=== PATIENT | female | born 1995 | race Caucasian/White ===

== ENCOUNTER 2020-01-19 13:14 | Emergency (ER) | payer OTHER, SELFPAY ==
[2020-01-19 13:15] VITALS: BP 126/69; PULSE 76; RESP 16; TEMP 36.4; O2SAT 96; BMI 32.1
--- NOTE | 2020-01-19 13:17 | ED_ITS ---
HPI - General Adult General: Chief complaint: General Medical Stated complaint: HYPOGLYCEMIA Time Seen by Provider: 01/19/20 13:17 Source: patient Mode of arrival: ambulatory Limitations: no limitations History of Present Illness: HPI narrative: Patient comes in today for complaints of low blood sugar. Patient states this morning she woke up and checked her blood sugar and it was 69. Patient ate breakfast which consisted of pretzels and peanut butter. Patient took her routine dose of Lantus. Patient then laid down for nap after feeling slightly nauseous. Patient awakened shortly thereafter with difficulty with movement and called for EMS. Patient's blood sugar was 42 when EMS arrived. Patient was given 1 tube of glucose gel, and 250 mL's of D10 and a cup of ice cream. Patient at this time is alert and responding appropriately. Patient's blood sugar was 150 on arrival to the ER. Patient denies any pain or other symptoms. Review of Systems General: Reports: 10 or more systems reviewed and unremarkable except in HPI and below Endo: Reports: other (Hypoglycemia) REPLACED BY [facility] ED PFSH: Social History Smoking and tobacco status: former smoker Physical Exam Const: COMMON NORMALS: no acute distress and patient oriented x3 GENERAL APPEARANCE: cooperative HENMT: COMMON NORMALS: normocephalic and Normal external nose present HEAD & SCALP: normal to inspection and normocephalic NOSE: Normal external nose present MOUTH: Normal oral and palatal mucosa present Eye: GENERAL EYE: appearance normal, both eyes and all related structures Neck/C-Spine: COMMON NORMALS: full ROM Lymph: LYMPHATIC: no lymphadenopathy noted Chest: COMMONS NORMALS: normal inspection of the chest Resp: COMMON NORMALS: normal respiratory effort EFFORT & INSPECTION: Yes able to speak in complete sentences Cardio: COMMON NORMALS: regular rate and regular rhythm RATE: regular rate RHYTHM: regular rhythm GI: COMMON NORMALS: non-tender : COMMON NORMALS: Yes no CVA tenderness BLADDER/KIDNEY EXAM: Yes no CVA tenderness Back/Pelvis: COMMON NORMALS: no CVA tenderness and thoracic and lumbar spine normal to inspection Extremity: COMMON NORMALS: normal to inspection Neuro: COMMON NORMALS: patient oriented x3 and moves all extremities Psych: COMMON NORMALS: mental status grossly normal and cooperative Skin: COMMON NORMALS: no rashes or lesions noted GENERAL SKIN EXAM: no rashes or lesions noted Course ED course: 1440, patient is alert. Patient appears well. Blood glucose is 263 now. Ultrasound showed a viable of 10 weeks with a heart rate of 136. Vital Signs: Vital signs: Vital Signs Temperature 97.6 F 01/19/20 13:15 Pulse Rate 76 01/19/20 13:15 Respiratory Rate 16 01/19/20 13:15 Blood Pressure 126/69 01/19/20 13:15 Pulse Oximetry 96 01/19/20 13:15 MDM - General Adult MDM Narrative: Medical decision making narrative: Patient comes in today for an episode of hypoglycemia. Patient has recovered since arriving to the ER. Patient had been given insulin glucose in the ambulance and was given 250 mL's of D5 10. Exam notes normal abdomen respirations even lungs clear to auscultation. Ultrasound of the pelvis noted a intrauterine of 10 weeks 5 days with heart rate of 136. Laboratory values noted mild leukocytosis, normal urinalysis, blood glucose of 53. Blood was drawn when EMS had started IV prior to giving D10. Rechecks of blood sugar noted a glucose of 150 on arrival to the ER and 236 about 1-1/2 hours after arrival to the ER. Reviewed exam with patient with recommendations for monitoring blood glucose more closely. Recommended glucose pod testing and instant glucose gel for episodes of hypoglycemia. Tried to reassure her that this often can happen in and there is nothing that is actually wrong except the body requiring more glucose to sustain the and herself. Patient reported understanding and agreed with plan with need for follow-up with primary care and endocrinology. Lab Data: Labs: Lab Results 01/19/20 01/19/20 01/19/20 Range/Units 13:02 13:02 13:20 WBC 16.5 H (4.0-10.0) 10^3/ uL RBC 4.88 (4.1-5.3) 10^6/u L Hgb 14.5 (11.5-15.3) g/dL Hct 43.1 (37.0-47.0) % MCV 88.3 (81-99) fL MCH 29.7 (28.0-34.0) pg MCHC 33.6 (30.0-36.0) g/dL RDW 11.7 L (12.1-15.1) % Plt Count 305 (130-400) 10^3/c mm MPV 10.7 H (7.4-10.4) fL Neut % (Auto) 84.4 % Lymph % (Auto) 10.2 % Elbert % (Auto) 4.1 % Eos % (Auto) 0.1 % Baso % (Auto) 0.2 % Neut # (Auto) 14.0 H (1.8-7.7) 10^3/u L Lymph # (Auto) 1.7 (0.8-4.8) 10^3/u L Elbert # (Auto) 0.7 (0.2-0.9) 10^3/u L Eos # (Auto) 0.0 (0.0-0.8) 10^3/u L Baso # (Auto) 0.0 (0.0-0.1) 10^3/u L Nucleated RBC % (a uto) 0 % Nucleated RBCs # 0.0 /100WBC Sodium 138 (136-145) mmol/L Potassium 3.4 L (3.5-5.1) mmol/L Chloride 102 (98-107) mmol/L Carbon Dioxide 23 (22-29) mmol/L Anion Gap 16.4 (5-19) BUN 13 (6-20) mg/dL Creatinine 0.4 L (0.5-0.9) mg/dL GFR Calculation 196.1 H (90-130) mL/min Glucose 53 L (65-115) mg/dL POC Glucose 150 (70-110) mg/dL Calculated Osmolal ity 280 L (285-295) mOsm/k g Calcium 8.4 L (8.5-10.5) mg/dL Total Bilirubin 0.2 (0.15-1.2) mg/dL AST 17 (0-32) U/L ALT 10 (0-33) U/L Alkaline Phosphata se 46 (35-105) IU/L Total Protein 7.1 (6.6-8.7) g/dL Albumin 4.6 (3.5-5.2) g/dL Globulin 2.5 (1.3-4.6) g/dL Urine Color (Yellow) Urine Appearance (CLEAR) Urine pH (5-7) Ur Specific Gravit y (1.005-1.030) Urine Protein (Negative) Urine Glucose (UA) (Normal) Urine Ketones (Negative) Urine Blood (Negative) Urine Nitrate (Negative) Urine Bilirubin (NEGATIVE) Urine Urobilinogen (Negative) mg/dL Ur Leukocyte Jenna ase (Negative) 01/19/20 01/19/20 Range/Units 14:07 14:35 WBC (4.0-10.0) 10^3/ uL RBC (4.1-5.3) 10^6/u L Hgb (11.5-15.3) g/dL Hct (37.0-47.0) % MCV (81-99) fL MCH (28.0-34.0) pg MCHC (30.0-36.0) g/dL RDW (12.1-15.1) % Plt Count (130-400) 10^3/c mm MPV (7.4-10.4) fL Neut % (Auto) % Lymph % (Auto) % Elbert % (Auto) % Eos % (Auto) % Baso % (Auto) % Neut # (Auto) (1.8-7.7) 10^3/u L Lymph # (Auto) (0.8-4.8) 10^3/u L Elbert # (Auto) (0.2-0.9) 10^3/u L Eos # (Auto) (0.0-0.8) 10^3/u L Baso # (Auto) (0.0-0.1) 10^3/u L Nucleated RBC % (a uto) % Nucleated RBCs # /100WBC Sodium (136-145) mmol/L Potassium (3.5-5.1) mmol/L Chloride (98-107) mmol/L Carbon Dioxide (22-29) mmol/L Anion Gap (5-19) BUN (6-20) mg/dL Creatinine (0.5-0.9) mg/dL GFR Calculation (90-130) mL/min Glucose (65-115) mg/dL POC Glucose 263 (70-110) mg/dL Calculated Osmolal ity (285-295) mOsm/k g Calcium (8.5-10.5) mg/dL Total Bilirubin (0.15-1.2) mg/dL AST (0-32) U/L ALT (0-33) U/L Alkaline Phosphata se (35-105) IU/L Total Protein (6.6-8.7) g/dL Albumin (3.5-5.2) g/dL Globulin (1.3-4.6) g/dL Urine Color Yellow (Yellow) Urine Appearance Clear (CLEAR) Urine pH 6 (5-7) Ur Specific Gravit y 1.020 (1.005-1.030) Urine Protein Trace (Negative) Urine Glucose (UA) 4+ H (Normal) Urine Ketones 1+ H (Negative) Urine Blood Neg (Negative) Urine Nitrate Negative (Negative) Urine Bilirubin Neg (NEGATIVE) Urine Urobilinogen Norm (Negative) mg/dL Ur Leukocyte Jenna ase Negative (Negative) Discharge Plan Discharge Patient Disposition: Home, Self-Care Clinical Impression: Hypoglycemia due to type 1 diabetes mellitus, Diabetes mellitus affecting in first trimester Condition: Stable Prescriptions: No Action Humalog KwikPen Insulin 100 unit/mL insulin pen See Rx Instructions .ROUTE .COMPLEX RF: 0 Lantus Solostar U-100 Insulin 100 unit/mL (3 mL) insulin pen 38 unit SUBCUT DAILY RF: 0 28 mg iron- 800 mcg Tablet 1 tab PO DAILY RF: 0 Discharge Diet: Usual diet Discharge Activity: Increase activity as tolerated Patient Instructions: Diabetic Hypoglycemia (ED) Activity Restrictions/Additional Instructions: Healthy diet. Ensure to check insulin and sugar regularly. Have on hand glucose gel to assist with low blood sugar. Discussed with taker off drying kiln and SUPPLY CHAIN DESIGN MANAGER regarding coordination of care for diabetes and . Eat frequent routine meals. Return to the ER for new concerns. Coding Level of Care Code ED Industrial Training Specialist for Lena Fwd Exam Comprehensive
[2020-01-19 13:25] LABS: Glucose Point of Care 150 mg/dL (70-110)
--- NOTE | 2020-01-19 13:26 | USR_ITS ---
PROCEDURE INFORMATION: Exam: US First Trimester, Transabdominal and US , Transvaginal Exam date and time: 01/19/2020 1:53 PM Age: 24 years old Clinical indication: Screening exam; Other: Hypoglycemic event (assess ); ; Patient HX: H/o c-sec TECHNIQUE: Imaging protocol: Real-time transabdominal obstetrical ultrasound of the maternal pelvis and a first trimester , less than 14 weeks 0 days, with image documentation. Transvaginal imaging was used for better evaluation of the fetus and adnexa. COMPARISON: No relevant prior studies available. FINDINGS: Gestation: There is a single viable intrauterine gestation. Heart rate: The heart rate is 136 bpm. Placenta: No subchorionic bleed. Amniotic fluid: Amniotic fluid is normal for gestational age. BIOMETRY: Estimated gestational age: The estimated gestational age is 10 weeks 5 days. Estimated due date: Estimated date of delivery is August 11, 2020. MATERNAL: Uterus: The uterus measures 11.9 cm x 6.4 cm x 7.5 cm in size. Cervix: Unremarkable as visualized. Right adnexa: The right ovary measures 4.6 cm x 5.3 cm x 2.6 cm in size. There is a 3.4 cm right ovarian cyst. Blood flow is detected in the right ovary on color flow Doppler ultrasound and pulse-wave Doppler spectral analysis. Left adnexa: The left ovary was sought but not visualized. Intraperitoneal space: No intraperitoneal free fluid. US/US OB <= 14 weeks fetus [id number] IMPRESSION: Single viable 10 week 5 day intrauterine gestation.
[2020-01-19 13:40] LABS: Basophils % 0.2 %; Eosinophils % 0.1 %; Hematocrit 43.1 % (37.0-47.0); Hemoglobin 14.5 g/dL (11.5-15.3); Lymphocytes # 1.7 10^3/uL (0.8-4.8); Lymphocytes % 10.2 %; Mean Corpuscular HGB Conc 33.6 g/dL (30.0-36.0); Mean Corpuscular Hemoglobin 29.7 pg (28.0-34.0); Mean Corpuscular Volume 88.3 fL (81-99); Mean Platelet Volume 10.7 fL (7.4-10.4); Monocytes # 0.7 10^3/uL (0.2-0.9); Monocytes % 4.1 %; Neutrophils % 84.4 %; Nucleated Red Blood Cells % 0 %; Platelet Count 305 10^3/cmm (130-400); Red Blood Count 4.88 10^6/uL (4.1-5.3); Red Cell Distribution Width 11.7 % (12.1-15.1); White Blood Count 16.5 10^3/uL (4.0-10.0)
[2020-01-19 13:55] LABS: Alanine Aminotransferase 10 U/L (0-33); Albumin Level 4.6 g/dL (3.5-5.2); Alkaline Phosphatase 46 IU/L (35-105); Anion Gap 16.4 (5-19); Aspartate Amino Transferase 17 U/L (0-32); Blood Urea Nitrogen 13 mg/dL (6-20); Calcium 8.4 mg/dL (8.5-10.5); Carbon Dioxide 23 mmol/L (22-29); Chloride 102 mmol/L (98-107); Globulin 2.5 g/dL (1.3-4.6); Glomerular Filtration Rate 196.1 mL/min (90-130); Glucose 53 mg/dL (65-115); Osmolality Calculated 280 mOsm/kg (285-295); Potassium 3.4 mmol/L (3.5-5.1); Sodium 138 mmol/L (136-145); Total Bilirubin 0.2 mg/dL (0.15-1.2); Total Protein 7.1 g/dL (6.6-8.7)
[2020-01-19 14:39] LABS: Glucose Point of Care 263 mg/dL (70-110)
[2020-01-19 14:50] LABS: Urine Appearance Clear (CLEAR); Urine Color Yellow (Yellow)
[2020-01-19 14:51] LABS: Add Urine Microscopic? YES; Bilirubin Urine Neg (NEGATIVE); Blood Urine Neg (Negative); Glucose Urine UA 4+ (Normal); Ketones Urine 1+ (Negative); Leukocyte Esterase Urine Negative (Negative); Nitrate Urine Negative (Negative); Protein Urine Trace (Negative); Urobilinogen Urine Norm (Negative); pH Urine 6 (5-7)
[2020-01-19 15:34] VITALS: BP 125/71; PULSE 61; RESP 20; O2SAT 96
[2020-01-19 15:36] LABS: Squamous Epithelial Cell Urine 25-40 (0-5); WBC Urine RARE /hpf (0-5)
[2020-01-19 15:37] LABS: Add Urine Culture? No; Bacteria Urine 2+; Mucus Urine 1+
== END 2020-01-19 15:35 | disposition home or self-care (01) ==
PROVIDERS: Emergency Provider Nurse Practitioner Family
DX: O24.011 Pre-existing type 1 diabetes mellitus, in pregnancy, first trimester (principal); E10.9 Type 1 diabetes mellitus without complications; Z3A.10 10 weeks gestation of pregnancy; Z79.4 Long term (current) use of insulin; Z87.891 Personal history of nicotine dependence
CPT/HCPCS: 12345; 36416; 76801; 80053; 81001; 82962; 85025; 99281; 99283

== ENCOUNTER 2020-12-01 08:09 | Emergency (ER) | payer OTHER, SELFPAY ==
[2020-12-01 08:19] VITALS: BP 119/81; PULSE 63; RESP 18; TEMP 36.7; O2SAT 98; BMI 34.0
--- NOTE | 2020-12-01 08:30 | ED_ITS ---
HPI - Nausea/Vomiting/Diarrhea General: Chief complaint: Nausea/Vomiting/Diarrhea Stated complaint: N/V, FEVER, DIABETIC PT Time Seen by Provider: 12/01/20 08:11 History of Present Illness: HPI Narrative: Patient is a 25-year-old female comes to the ED with UTI symptoms, fever and nausea vomiting. patient says about a week and a half ago she started having symptoms of UTI such as burning when urinating. She took some [id number] Azo and it did improve her symptoms. Patient that she started developing a fever nausea and vomiting approximately 3 to 4 days ago. She went to [facility] on November 28 and they diagnosed patient with a UTI and possibly developing pyelonephritis and gave patient a antibiotic shot and sent her home on nausea meds. Patient says she still is having some dysuria, but her nausea has improved with the meds. Patient does endorse having a fever last night that responded to Motrin. Patient currently has a 5-month-old baby and is breast-feeding. Here in the ED she says she does not have any nausea and says she took her antinausea med before coming to ED. Past medical history of type 1 diabetes. Patient denies any abdominal pain, flank pain or bowel symptoms. Patient says she gave herself 10 units of insulin while here in the ED. Associated nausea: Yes Associated symtoms: Reports dysuria and nausea; Denies change in vision, chest pain, fatigue, headache(s) or palpitations Review of Systems Const: Reports: fever(s); Denies: chills or fatigue Eyes: Denies: change in vision or eye discomfort ENMT: Denies: throat pain, odynophagia, nasal discharge or nasal congestion Card: Denies: chest pain, palpitations, edema, swelling of feet/ankles, dyspnea on exertion or orthopnea Resp: Denies: dyspnea, productive cough or non-productive cough GI: Reports: nausea and vomiting; Denies: abdominal pain, diarrhea, constipation or hematochezia : Reports: dysuria; Denies: flank pain or hematuria Musc: Denies: neck pain, back pain or extremity swelling Skin/Breast: Denies: rash or new lesions Neuro: Denies: headache(s), numbness in extremities or weakness in extremities PFS ED PFSH: Social History Smoking and tobacco status: former smoker Female Reproductive History: Date of last menstrual period: 10/06/20 Physical Exam Narrative: EXAM NARRATIVE: Patient is a healthy 25-year-old female that appears in no acute distress or pain when I entered the room. She sitting comfortably on exam bed and showing no signs of distress. Const: COMMON NORMALS: no acute distress, patient oriented x3, healthy appearing and alert GENERAL APPEARANCE: cooperative and comfortable HENMT: COMMON NORMALS: normocephalic HEAD & SCALP: normocephalic MOUTH: Normal oral and palatal mucosa present THROAT: posterior oropharynx normal and uvula midline Neck/C-Spine: COMMON NORMALS: supple GENERAL: Yes normal visual inspection Resp: COMMON NORMALS: normal respiratory effort, No retractions, No use of accessory muscles and clear to auscultation bilaterally EFFORT & INSPECTION: Yes able to speak in complete sentences, No tachypneic, No respiratory distress and No labored AUSCULTATION: clear to auscultation bilaterally Cardio: COMMON NORMALS: regular rate, regular rhythm, S1 normal heart sound present, S2 normal heart sound present, No gallops present (Cardio), No clicks present (Cardio), No murmurs present (Cardio) and Peripheral pulses 2+ throughout RATE: regular rate RHYTHM: regular rhythm HEART SOUNDS: S1 normal heart sound present and S2 normal heart sound present PERIPHERAL PULSES: Peripheral pulses 2+ throughout GI: COMMON NORMALS: Normal to inspection, nondistended, normoactive bowel sounds present, Soft to palpation, non-tender and no masses PALPATION: Yes Soft to palpation : COMMON NORMALS: Yes no CVA tenderness BLADDER/KIDNEY EXAM: Yes no CVA tenderness Back/Pelvis: COMMON NORMALS: no CVA tenderness Extremity: COMMON NORMALS: normal to inspection Neuro: COMMON NORMALS: patient oriented x3 and moves all extremities SENSORIUM/ORIENTATION: Yes alert Skin: GENERAL SKIN EXAM: dry skin Course Vital Signs: Vital signs: Vital Signs Temperature 98.1 F 12/01/20 08:19 Pulse Rate 63 12/01/20 08:19 Respiratory Rate 18 12/01/20 08:19 Blood Pressure 119/81 12/01/20 08:19 Pulse Oximetry 98 12/01/20 08:19 MDM - Nausea/Vomiting/Diarrhea MDM Narrative: Medical decision making narrative: Patient is a 25-year-old female who comes to the ED for UTI and elevated blood sugars. Past medical history of type 1 diabetes. Patient had UTI symptoms for over a week and then was seen at [facility] on November 29 and given a shot of an antibiotic to treat her UTI. Patient was still having some UTI symptoms and had a fever and nausea. Patient is a 25-year-old female appears nontoxic and in no acute distress. Exam findings were unremarkable. CBC and CMP were unremarkable besides the blood glucose of 354. Patient had positive serum ketones and hCG negative. UA seems to be improving although she still having some symptoms of a UTI. Patient took 10 units of her home insulin here in the ED and her blood sugars started decreasing. She was given 1 L of IV fluids. [id number] testing foot patient's monitor glucose at 250 after the fluids and the 10 units of insulin given. Patient was diagnosed with hyperglycemia and UTI. She was discharged home with prescription for Bactrim. She was told to follow-up with the PCP in 5 to 7 days for reevaluation. Return to ED precautions given. Patient understood and agreed with. Lab Data: Attestation: I reviewed the patient's lab results. Labs: Lab Results 12/01/20 12/01/20 12/01/20 Range/Units 08:50 08:50 08:50 WBC 7.8 (4.0-10.0) 10^3/ uL RBC 4.18 (4.1-5.3) 10^6/u L Hgb 12.0 (11.5-15.3) g/dL Hct 37.0 (37.0-47.0) % MCV 88.5 (81-99) fL MCH 28.7 (28.0-34.0) pg MCHC 32.4 (30.0-36.0) g/dL RDW 12.7 (12.1-15.1) % Plt Count 261 (130-400) 10^3/c mm MPV 10.8 H (7.4-10.4) fL Neut % (Auto) 56.3 % Lymph % (Auto) 29.0 % Hawkins % (Auto) 11.9 % Eos % (Auto) 1.3 % Baso % (Auto) 0.5 % Neut # (Auto) 4.36 (1.8-7.7) 10^3/u L Lymph # (Auto) 2.3 (0.8-4.8) 10^3/u L Hawkins # (Auto) 0.9 (0.2-0.9) 10^3/u L Eos # (Auto) 0.1 (0.0-0.8) 10^3/u L Baso # (Auto) 0.0 (0.0-0.1) 10^3/u L Nucleated RBC % (a uto) 0 % Nucleated RBCs # 0.0 /100WBC Specimen Type Sample Site ABG pH (7.35-7.45) ABG pCO2 (35-45) mmHg ABG pO2 (80.0-100.0) mmH g ABG HCO3 (22-26) mmol/L ABG O2 Saturation ABG Base Excess (-2.0-2.0) mmol/ L Mendoza Test A-a O2 Gradient (5-10) mmHg Hematocrit (37-47) % Hgb O2 Saturation (95-100) % Carboxyhemoglobin (0.4-20.1) %THgb Methemoglobin (0.4-1.5) % Total Hemoglobin (12-16) g/dL Ionized Calcium (1.1-1.4) mmol/L O2 Delivery Device FiO2 % Salesperson Men'S Hats ID Sodium 138 (136-145) mmol/L Potassium 5.0 (3.5-5.1) mmol/L Chloride 102 (98-107) mmol/L Carbon Dioxide 23 (22-29) mmol/L Anion Gap 18.0 (5-19) BUN 11 (6-20) mg/dL Creatinine 0.6 (0.5-0.9) mg/dL GFR Calculation 121.8 (90-130) mL/min Glucose 354 H (65-115) mg/dL Calculated Osmolal ity 300 H (285-295) mOsm/k g Calcium 8.8 (8.5-10.5) mg/dL Total Bilirubin 0.2 (0.15-1.2) mg/dL AST 61 H (0-32) U/L ALT 109 H (0-33) U/L Alkaline Phosphata se 174 H (35-105) IU/L Total Protein 6.8 (6.6-8.7) g/dL Albumin 3.8 (3.5-5.2) g/dL Globulin 3.0 (1.3-4.6) g/dL Lipase 11 L (13-60) U/L HCG, Qual Negative (Negative) Urine Color (Yellow) Urine Appearance (CLEAR) Urine pH (5-7) Ur Specific Gravit y (1.005-1.030) Urine Protein (Negative) Urine Glucose (UA) (Normal) Urine Ketones (Negative) Urine Blood (Negative) Urine Nitrate (Negative) Urine Bilirubin (Negative) Urine Urobilinogen (Negative) mg/dL Ur Leukocyte Jenna ase (Negative) Urine RBC (0-2) /hpf Urine WBC (0-5) /hpf Ur Squamous Epith Cells (0-5) /hpf Amorphous Sediment Urine Bacteria (NONE) /hpf Serum Ketones (Negative) 12/01/20 12/01/20 12/01/20 Range/Units 08:50 08:56 10:04 WBC (4.0-10.0) 10^3/ uL RBC (4.1-5.3) 10^6/u L Hgb (11.5-15.3) g/dL Hct (37.0-47.0) % MCV (81-99) fL MCH (28.0-34.0) pg MCHC (30.0-36.0) g/dL RDW (12.1-15.1) % Plt Count (130-400) 10^3/c mm MPV (7.4-10.4) fL Neut % (Auto) % Lymph % (Auto) % Hawkins % (Auto) % Eos % (Auto) % Baso % (Auto) % Neut # (Auto) (1.8-7.7) 10^3/u L Lymph # (Auto) (0.8-4.8) 10^3/u L Hawkins # (Auto) (0.2-0.9) 10^3/u L Eos # (Auto) (0.0-0.8) 10^3/u L Baso # (Auto) (0.0-0.1) 10^3/u L Nucleated RBC % (a uto) % Nucleated RBCs # /100WBC Specimen Type Arterial Sample Site Brachial, left ABG pH 7.42 (7.35-7.45) ABG pCO2 37.7 (35-45) mmHg ABG pO2 70.7 L (80.0-100.0) mmH g ABG HCO3 24.3 (22-26) mmol/L ABG O2 Saturation 93.2 ABG Base Excess 0.0 (-2.0-2.0) mmol/ L Mendoza Test Pos A-a O2 Gradient 4.2 L (5-10) mmHg Hematocrit 35.5 L (37-47) % Hgb O2 Saturation 92.6 L (95-100) % Carboxyhemoglobin < 0.0 L (0.4-20.1) %THgb Methemoglobin 1.0 (0.4-1.5) % Total Hemoglobin 11.6 L (12-16) g/dL Ionized Calcium 1.2 (1.1-1.4) mmol/L O2 Delivery Device Room air FiO2 21.0 % Salesperson Men'S Hats ID Monro Sodium 139.0 (136-145) mmol/L Potassium 4.2 (3.5-5.1) mmol/L Chloride (98-107) mmol/L Carbon Dioxide (22-29) mmol/L Anion Gap (5-19) BUN (6-20) mg/dL Creatinine (0.5-0.9) mg/dL GFR Calculation (90-130) mL/min Glucose 313.0 H (65-115) mg/dL Calculated Osmolal ity (285-295) mOsm/k g Calcium (8.5-10.5) mg/dL Total Bilirubin (0.15-1.2) mg/dL AST (0-32) U/L ALT (0-33) U/L Alkaline Phosphata se (35-105) IU/L Total Protein (6.6-8.7) g/dL Albumin (3.5-5.2) g/dL Globulin (1.3-4.6) g/dL Lipase (13-60) U/L HCG, Qual (Negative) Urine Color Yellow (Yellow) Urine Appearance Clear (CLEAR) Urine pH 6 (5-7) Ur Specific Gravit y 1.015 (1.005-1.030) Urine Protein Neg (Negative) Urine Glucose (UA) 4+ H (Normal) Urine Ketones 2+ H (Negative) Urine Blood Neg (Negative) Urine Nitrate Negative (Negative) Urine Bilirubin Neg (Negative) Urine Urobilinogen Norm (Negative) mg/dL Ur Leukocyte Jenna ase Negative (Negative) Urine RBC None (0-2) /hpf Urine WBC 5-10 H (0-5) /hpf Ur Squamous Epith Cells 5-10 H (0-5) /hpf Amorphous Sediment Not Reportable Urine Bacteria Trace (NONE) /hpf Serum Ketones Positive H (Negative) Discharge Plan Discharge Patient Disposition: Home Clinical Impression: Hyperglycemia due to type 1 diabetes mellitus, UTI symptoms Condition: Stable Prescriptions: New sulfamethoxazole-trimethoprim 800-160 mg tablet 1 tab PO BID 5 Days Qty: 10 RF: 0 No Action Humalog KwikPen Insulin 100 unit/mL insulin pen See Rx Instructions .ROUTE .COMPLEX RF: 0 Lantus Solostar U-100 Insulin 100 unit/mL (3 mL) insulin pen 38 unit SUBCUT DAILY RF: 0 28 mg iron- 800 mcg Tablet 1 tab PO DAILY RF: 0 Discharge Orders: Discharge ED (Routine); Ordered 12/01/20 Ordered By: Henry Saleh Discharge Diet: Regular Discharge Activity: Resume usual activity Patient Instructions: Urinary Tract Infection in Women (ED), Diabetic Hyperglycemia (ED) Activity Restrictions/Additional Instructions: Follow-up with medical provider as directed in 7 to 10 days for reevaluation. Take medications as prescribed. Drink plenty of fluids and stay hydrated. Continue taking your insulin as previously prescribed and monitoring blood glucose levels. Return to the ER or your medical provider if condition worsens. Please read and understand discharge instructions. If any questions, please ask. Coding Level of Care Code ED Floor And Wall Applier Liquid for Lena Fwd Exam Comprehensive
[2020-12-01 09:04] LABS: Basophils % 0.5 %; Eosinophils # 0.1 10^3/uL (0.0-0.8); Eosinophils % 1.3 %; Lymphocytes # 2.3 10^3/uL (0.8-4.8); Mean Corpuscular HGB Conc 32.4 g/dL (30.0-36.0); Mean Corpuscular Hemoglobin 28.7 pg (28.0-34.0); Mean Corpuscular Volume 88.5 fL (81-99); Mean Platelet Volume 10.8 fL (7.4-10.4); Monocytes # 0.9 10^3/uL (0.2-0.9); Monocytes % 11.9 %; Neutrophils # 4.36 10^3/uL (1.8-7.7); Neutrophils % 56.3 %; Nucleated Red Blood Cells % 0 %; Platelet Count 261 10^3/cmm (130-400); Red Blood Count 4.18 10^6/uL (4.1-5.3); Red Cell Distribution Width 12.7 % (12.1-15.1); White Blood Count 7.8 10^3/uL (4.0-10.0)
[2020-12-01 09:12] LABS: Glucose Urine UA 4+ (Normal); Protein Urine Neg (Negative); Specific Gravity, Urine 1.015 (1.005-1.030); Urine Appearance Clear (CLEAR); Urine Color Yellow (Yellow); pH Urine 6 (5-7)
[2020-12-01 09:13] LABS: Bilirubin Urine Neg (Negative); Blood Urine Neg (Negative); Ketones Urine 2+ (Negative); Leukocyte Esterase Urine Negative (Negative); Nitrate Urine Negative (Negative); Urobilinogen Urine Norm (Negative)
[2020-12-01 09:17] LABS: HCG, Serum Qual Negative (Negative)
[2020-12-01 09:22] LABS: Alanine Aminotransferase 109 U/L (0-33); Albumin Level 3.8 g/dL (3.5-5.2); Alkaline Phosphatase 174 IU/L (35-105); Aspartate Amino Transferase 61 U/L (0-32); Blood Urea Nitrogen 11 mg/dL (6-20); Calcium 8.8 mg/dL (8.5-10.5); Carbon Dioxide 23 mmol/L (22-29); Chloride 102 mmol/L (98-107); Glomerular Filtration Rate 121.8 mL/min (90-130); Glucose 354 mg/dL (65-115); Lipase 11 U/L (13-60); Osmolality Calculated 300 mOsm/kg (285-295); Sodium 138 mmol/L (136-145); Total Bilirubin 0.2 mg/dL (0.15-1.2); Total Protein 6.8 g/dL (6.6-8.7)
[2020-12-01 09:26] LABS: Ketone (Acetest) Serum Positive (Negative)
[2020-12-01 09:27] LABS: Add Urine Culture? No; Bacteria Urine TRACE /hpf
[2020-12-01] MEDS: sodium chloride 0.9% 1,000 ML 999 ML IV (09:57)
[2020-12-01 10:18] LABS: ABG PCO2 37.7 mmHg (35-45); ABG PH Result 7.42 (7.35-7.45); Alveolar-Arterial Oxygen Gradi 4.2 mmHg (5-10); Arterial Blood Gas Hematocrit 35.5 % (37-47); Blood Gas Allen Test Pos; Blood Gas Operator Identificat MONRO; Blood Gas Sample Site Brachial, left; Blood Gas Sample Type Arterial; Carboxyhemoglobin < 0.0 %THgb (0.4-20.1); HCO3 ABG 24.3 mmol/L (22-26); HGB O2 Sat 92.6 % (95-100); Ionized Calcium Level - ABG 1.2 mmol/L (1.1-1.4); Oxygen Device ROOM AIR; Oxygen Saturation ABG 93.2; PO2 ABG 70.7 mmHg (80.0-100.0); Potassium Level - ABG 4.2 mmol/L (3.5-5.0); Total Hemoglobin 11.6 g/dL (12-16)
== END 2020-12-01 11:58 | disposition home or self-care (01) ==
PROVIDERS: Emergency Provider Physician Assistant
DX: E10.65 Type 1 diabetes mellitus with hyperglycemia (principal); R50.9 Fever, unspecified; R11.2 Nausea with vomiting, unspecified; Z79.4 Long term (current) use of insulin; Z87.891 Personal history of nicotine dependence
CPT/HCPCS: 36600; 80051; 80053; 81001; 82009; 82330; 82805; 83690; 84703; 85025; 96360; 99283; J7030